=== PATIENT | male | born 2000 | race Caucasian/White ===

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

== ENCOUNTER 2020-08-07 11:38 | Emergency (ER) | payer OTHER, SELFPAY ==
[2020-08-07 11:55] VITALS: BP 138/73; PULSE 93; RESP 16; TEMP 36.3; O2SAT 100
--- NOTE | 2020-08-07 12:12 | ED.EYEPROB ---
HPI - Eye Problem General Chief complaint: Eye Problems Stated complaint: right eye Time Seen by Provider: 08/07/20 12:07 Source: patient and RN notes reviewed Mode of arrival: ambulatory Limitations: no limitations History of Present Illness HPI Narrative: 19-year-old male presents concern for possible foreign body in the right eye. Reports today some debris from a wood pallet got in his face, he felt like he got something in his eye. Reports he washed his eye immediately. Denies pain, reports irritation and watery drainage. Denies vision changes. Denies any skin laceration, abrasion. chief complaint: eye pain Related Data Allergies Allergy/AdvReac Type Severity Reaction Status Date / Time No Known Allergies Allergy Verified 08/07/20 11:54 Review of Systems Review of Systems: Narrative: CONSTITUTIONAL: Denies malaise, chills, sweats, or fever. EYES: Denies visual changes. Reports right eye redness, irritation, watery discharge. ENT: Denies rhinorrhea, congestion, sinus pain, otalgia or sore throat. SKIN: Denies rash or itching. Denies abrasion, laceration All systems reviewed & are unremarkable except as noted in HPI and below PMFSH Social History Social History Gender identity (if verbalized by the patient): Male Comments At time of signature, agree with nursing past medical, surgical, social and family history. There is no relevant family history pertinent to the presenting complaint Exam Narrative: Exam Narrative: GENERAL: Well-appearing, well-nourished, and in no acute distress. HEAD: Normocephalic, atraumatic. EYES: PERRLA and EOMI. No nystagmus. Right eye sclera slightly injected, no foreign body noted. Corneal abrasion noted on Ybarra lamp exam, see note ENT: Mucous membranes moist. NECK: Supple. CHEST: No respiratory distress. speaks in full sentences. HEART: Regular rate and rhythm. SKIN: Warm, dry, no rash. NEURO: Alert and oriented x3. PSYCH: Normal mood and affect Course Course Emergency Course: Patient is aware of diagnosis, understands and agrees to treatment plan. Anticipatory guidance given. Patient agrees to follow-up as directed and is aware of reasons to seek care at the emergency department. Portions of this record may have been created with voice recognition software Vital Signs Vital signs: Vital Signs Temperature 97.3 F L 08/07/20 11:55 Pulse Rate 93 08/07/20 11:55 Respiratory Rate 16 08/07/20 11:55 Blood Pressure 138/73 08/07/20 11:55 Pulse Oximetry 100 08/07/20 11:55 Temperature 97.3 F L 08/07/20 11:55 Pulse Rate 93 08/07/20 11:55 Respiratory Rate 16 08/07/20 11:55 Blood Pressure 138/73 08/07/20 11:55 Pulse Oximetry 100 08/07/20 11:55 Reviewed. MDM - Eye Problem MDM Narrative Medical decision making narrative: Consideration of the following conditions may be warranted for the presenting problem, they are not final diagnoses: Bacterial conjunctivitis, allergic conjunctivitis, viral conjunctivitis, foreign body, blepharitis, chalazion, hordeolum, corneal abrasion. Exam findings show no acute concerns or changes; patient is non-toxic appearing and is in no distress. Patient is appropriate for outpatient treatment and follow-up. Critical Care Time Critical Care Time Critical Care Time: No Discharge Plan Discharge Clinical Impression: Corneal abrasion Qualifiers: Encounter type: initial encounter Laterality: right Qualified Code(s): S05.01XA - Injury of conjunctiva and corneal abrasion without foreign body, right eye, initial encounter Patient Disposition: Home, Self-Care Condition: Stable Instructions: Corneal Abrasion (ED) Additional Instructions: Corneal abrasions will heal in 1-2 days. Keep your eye shut and wearing sunglasses or staying in low light to avoid light sensitivity. Do not touch or rub your eye or use a fabric patch ( pirate's patch ) You may take Tylenol or ibuprofen for pain Follow-up with PCP or
== END 2020-08-07 12:27 | disposition home or self-care (01) ==
PROVIDERS: Emergency Provider Nurse Practitioner
DX: S05.01XA Injury of conjunctiva and corneal abrasion without foreign body, right eye, initial encounter (principal); X58.XXXA Exposure to other specified factors, initial encounter
CPT/HCPCS: 99213; A9270; G0463

== ENCOUNTER 2021-11-12 12:13 | Emergency (ER) | payer OTHER, SELFPAY ==
--- NOTE | ~2021-11-12 | CT_ITS ---
EXAMINATION: CT brain wo con, CT cervical spine wo con EXAM DATE: 11/12/2021 12:47 INDICATION: Head injury. TECHNIQUE: Spiral CT of the head was performed without contrast. Axial, coronal and sagittal images were reviewed. Spiral CT of the cervical spine was performed without contrast. Axial images were rev iewed. Coronal and sagittal reformatted images were also reviewed. The dose-length product (DLP) fo r this examination was 605.33 (accession [id number]), 475.37 (accession [id number]) mGy-cm. The exposure was tailored according to patient size, and iterative reconstruction (ASIR) was used as additional dose reduction technique. Comparison is made to prior examination from 09/09/2017. FINDINGS: HEAD CT: There is no acute intraparenchymal hemorrhage. No evidence of intraparenchymal brain mass l esion. No evidence of acute infarction. There is no mass effect or midline shift. There is no obstru ctive hydrocephalus suspected. There are no extra-axial collections. There are no acute calvarial f ractures. The orbits are unremarkable. Soft tissue is unremarkable. The visualized sinuses and mas toid air cells are well aerated. CERVICAL CT: There is no evidence of acute cervical fracture. The odontoid process is intact. Pre- dens space is normal. Prevertebral soft tissue is normal. There are no soft tissue abnormalities id entified. There is no disc space widening or traumatic vertebral body subluxation suspected. Verteb ral body and disc heights are well-maintained. A detailed level by level evaluation of spondylosis can be added as addendum if requested. IMPRESSION: 1. No acute intracranial findings or cervical fracture. Reviewed, dictated and finalized at location B. IMPRESSION: 1. No acute intracranial findings or cervical fracture.
[2021-11-12 12:20] VITALS: BP 133/74; PULSE 94; RESP 16; TEMP 36.3; O2SAT 99
--- NOTE | 2021-11-12 12:33 | ED.HEATRA ---
HPI - Head Injury General Chief complaint: Head Injury Stated complaint: head injury Time Seen by Provider: 11/12/21 12:22 History of Present Illness HPI Narrative: 21-year-old male presents emergency room for evaluation of a head injury that he sustained while at work this morning. 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 Patient states that he was nauseated following the event. Denies loss of consciousness or altered mental status. Denies vision and hearing changes. Currently patient is alert and oriented x3. Patient denies being on blood thinners Related Data Allergies Allergy/AdvReac Type Severity Reaction Status Date / Time No Known Allergies Allergy Verified 11/12/21 12:23 Review of Systems Review of Systems: CONSTITUTIONAL: Denies fever, chills, or sweats. EYES: Denies visual changes, redness, or discharge. ENT: Denies rhinorrhea, congestion, sore throat, or otalgia. CARDIOVASCULAR: Denies chest pain, palpitations, or edema. RESPIRATORY: Denies cough or dyspnea. GASTROINTESTINAL: Reports nausea GENITOURINARY: Denies dysuria or hematuria. SKIN: Denies rash or itching. MUSCULOSKELETAL: Denies back pain, joint pain, or myalgia. NEUROLOGIC: Reports headache PSYCHIATRIC: Denies anxiety or depression. [facility] [place] Social History Social History Gender identity (if verbalized by the patient): Male Course Vital Signs Vital signs: Vital Signs Temperature 36.3 C L 11/12/21 12:20 Pulse Rate 94 11/12/21 12:20 Respiratory Rate 16 11/12/21 12:20 Blood Pressure 133/74 11/12/21 12:20 Pulse Oximetry 99 11/12/21 12:20 Temperature 36.3 C L 11/12/21 12:20 Pulse Rate 94 11/12/21 12:20 Respiratory Rate 16 11/12/21 12:20 Blood Pressure 133/74 11/12/21 12:20 Pulse Oximetry 99 11/12/21 12:20 MDM - Head Injury Differential Diagnosis Differential diagnosis: Likely concussion without loss of consciousness and closed head injury Medical Records Attestation: I reviewed the patient's medical records. Imaging Data Radiologist's impression: Impressions Cervical Spine CT 11/12/21 12:47 IMPRESSION: 1. No acute intracranial findings or cervical fracture. Head CT 11/12/21 12:47 IMPRESSION: 1. No acute intracranial findings or cervical fracture. Discharge Plan Discharge Clinical Impression: Nausea Closed head injury Qualifiers: Encounter type: initial encounter Qualified Code(s): S09.90XA - Unspecified injury of head, initial encounter Patient Disposition: Home, Self-Care Condition: Stable Instructions: Antibiotic Form Prescriptions: New ondansetron 4 mg tablet,disintegrating 4 mg PO Q8H Qty: 14 RF: 0 No Action polymyxin B sulf-trimethoprim [Polytrim] 10,000 unit- 1 mg/mL drops 1 drp EACH EYE Q4H 7 Days Qty: 10 RF: 0 Follow-up/Referrals: PHYSICIAN,MANAGER TRADE [Primary Care Provider] - Stand Alone Forms: Work/School Release IP Time of Disposition: 12:57
[2021-11-12] MEDS: ONDANSETRON HCL ODT 4 MG TABLET PO (12:39)
--- NOTE | 2021-11-12 12:43 | PC.NURSE ---
Pt to CT.
== END 2021-11-12 13:29 | disposition home or self-care (01) ==
PROVIDERS: Emergency Provider Nurse Practitioner Family
DX: S09.90XA Unspecified injury of head, initial encounter (principal); R11.0 Nausea; W22.8XXA Striking against or struck by other objects, initial encounter
CPT/HCPCS: 70450; 72125; 99284; A9270

== ENCOUNTER 2021-12-01 17:38 | Emergency (ER) | payer OTHER, SELFPAY ==
[2021-12-01 17:40] VITALS: BP 128/74; PULSE 103; RESP 18; TEMP 36.3; O2SAT 98
--- NOTE | 2021-12-01 17:58 | PC.NURSE ---
Dr. Orellana at bedside for pt assessment.
--- NOTE | 2021-12-01 18:04 | ED.WOUNDLAC ---
HPI - Wound/Laceration General Chief Complaint: Wound/Laceration Stated Complaint: laceration Time Seen by Provider: 12/01/21 17:52 Source: patient History of Present Illness HPI narrative: Patient presents with a finger laceration he reports he was cooking dinner at work he was cutting lettuce when it slipped and struck his finger. Reports the corner of his finger slipped off he put it back in place and wrapped a Band-Aid around it came to the ER for evaluation. Is unsure when his last tetanus shot was injuries on his left index finger he is right-hand dominant. Related Data Allergies Allergy/AdvReac Type Severity Reaction Status Date / Time No Known Allergies Allergy Verified 11/12/21 12:23 Review of Systems Review of Systems: CONSTITUTIONAL: Denies fever, chills, or sweats. EYES: Denies visual changes, redness, or discharge. ENT: Denies rhinorrhea, congestion, sore throat, or otalgia. CARDIOVASCULAR: Denies chest pain, palpitations, or edema. RESPIRATORY: Denies cough or dyspnea. GASTROINTESTINAL: Denies abdominal pain, nausea, vomiting, or diarrhea. SKIN: Denies rash or itching. MUSCULOSKELETAL: Denies back pain, joint pain, or myalgia. NEUROLOGIC: Denies headache, numbness, dizziness, or weakness. [facility] Social History Social History Gender identity (if verbalized by the patient): Male Exam Narrative: GENERAL: Well-appearing, well-nourished, and in no acute distress. HEAD: Normocephalic, atraumatic. EYES: PERRLA and EOMI. ENT: Nares clear, no rhinorrhea or epistaxis. Mucous membranes moist. NECK: Supple. No masses. No JVD EXTREMITIES: Normal range of motion. No edema. SKIN: Warm, dry, no rash. Small laceration less than half a centimeter on the radial distal aspect of the left second digit there is minor damage to the nail unable to separate the skin and identify any partial amputation. There is no active bleeding range of motion across the entire digit is intact sensation intact to light touch distally with less than 2-second cap refill NEURO: No focal deficits. Alert and oriented x3. PSYCH: Normal mood and affect. Course Vital Signs Vital signs: Vital Signs Temperature 36.3 C L 12/01/21 17:40 Pulse Rate 103 H 12/01/21 17:40 Respiratory Rate 18 12/01/21 17:40 Blood Pressure 128/74 12/01/21 17:40 Pulse Oximetry 98 12/01/21 17:40 Temperature 36.3 C L 12/01/21 17:40 Pulse Rate 103 H 12/01/21 17:40 Respiratory Rate 18 12/01/21 17:40 Blood Pressure 128/74 12/01/21 17:40 Pulse Oximetry 98 12/01/21 17:40 Procedures Laceration Laceration 1: Date: 12/01/21 Time: 18:11 Site: hand Side (If applicable): left Size (cm): 0.5 Description: linear Depth: simple, single layer Pre-repair: irrigated ====== Skin Level ====== Skin layer closed with: dermabond ====== Subcutaneous Layer ====== ====== Muscle Layer ====== ====== Tendon Layer ====== MDM - Wound/Laceration MDM Narrative Medical decision making narrative: H&P as above, vss, pt looks clinically well, exam laceration to the second digit left hand, labs/img considered, symptomatic relief available as needed, patient was treated with irrigation and skin glue on reevaluation pt continues to looks clinically well. Suspect superficial injury, dns major neurovascular compromise tendon injury significant blood loss. plan to tx/monitor as op w/ pcm f/u findings/plan discussed with pt, pt agree/comfortable with plan, return precautions given Discharge Plan Discharge Clinical Impression: Laceration Patient Disposition: Home, Self-Care Condition: Improved Instructions: Antibiotic Form, Laceration (ED), Skin Adhesive Care (ED) Additional Instructions: Please return if your symptoms worsen or fail to improve. If you develop a fever, can not eat/drink anything or if you have any other conc
[2021-12-01] MEDS: TETANUS,DIPHTHERIA,AC PERTUSSIS ADULT (0.5 ML) BOOSTRIX IM (18:26)
== END 2021-12-01 18:32 | disposition home or self-care (01) ==
PROVIDERS: Emergency Provider Emergency Medicine
DX: S61.211A Laceration without foreign body of left index finger without damage to nail, initial encounter (principal); W26.0XXA Contact with knife, initial encounter; Y93.G1 Activity, food preparation and clean up; Z23 Encounter for immunization
CPT/HCPCS: 12001; 90471; 90715; 99282

== ENCOUNTER 2023-05-19 10:18 | Emergency (ER) | payer OTHER, SELFPAY ==
--- NOTE | 2023-05-19 10:22 | ED.URI ---
HPI - URI/Sore Throat General Chief Complaint: Upper Respiratory Infection Stated Complaint: Sore Throat Time Seen by Provider: 05/19/23 10:22 Source: patient Mode of arrival: ambulatory Limitations: no limitations History of Present Illness HPI Narrative: Patient is a 42 male who presents with sore throat started last night. Also reports congestion and drainage. Denies any fever, chills, ear pain, headache, cough, nausea, vomiting, diarrhea. Did take ibuprofen with no relief of symptoms. Related Data Home Medications Medication Instructions Recorded Confirmed No Home Medications 05/19/23 05/19/23 Allergies Allergy/AdvReac Type Severity Reaction Status Date / Time No Known Allergies Allergy Verified 05/19/23 10:28 Review of Systems Review of Systems: All systems reviewed & are unremarkable except as noted in HPI and below Constitutional: Constitutional: Denies body ache(s), Denies chills, Denies fatigue, Denies fever(s), Denies headache(s), Denies malaise and Denies weakness Eyes: Eyes: Denies blurry vision, Denies itchy eyes and Denies loss of vision ENT: Denies otalgia, Denies headache(s), Reports nasal congestion, Denies sinus pain and Reports sore throat Cardiovascular: Cardiovascular: Denies chest pain, Denies irregular heart rhythm and Denies dyspnea Respiratory: Respiratory: Denies cough and Denies dyspnea Gastrointestinal: Gastrointestinal: Denies abdominal pain, Denies diarrhea, Denies nausea and Denies vomiting Musculoskeletal: Musculoskeletal: Denies back pain, Denies myalgias and Denies arthralgias Integumentary/Breasts: Skin/Breast: Denies pruritus and Denies rash Neurologic: Denies headache(s), Denies loss of vision and Denies weakness Psychiatric: Psychiatric: Reports no additional psychiatric complaints Endocrine: Endocrine: Denies fatigue Allergic/Immunologic: Allergic/Immunologic: Denies itchy eyes PMFSH Social History Social History Gender identity (if verbalized by the patient): Male Comments At time of signature, agree with nursing past medical, surgical, social and family history. There is no relevant family history pertinent to the presenting complaint. Exam Const: General: cooperative, healthy appearing, comfortable, no acute distress and well nourished Nutritional Appearance: well nourished Orientation/consciousness: patient oriented x3 Limitations: no limitations HENMT: Head: normal to inspection, normocephalic and atraumatic Ears: hearing grossly normal bilaterally, external ears normal, TM's normal bilaterally, EAC's normal and no periauricular adenopathy Face/Nose/Sinus: Normal external nose present, Abnormal mucous membranes and turbinates present erythematous bilateral and diffuse, normal facial exam, sinuses nontender and face symmetric Face and sinus: normal facial exam, sinuses nontender and face symmetric Mouth: Yes Normal oral and palatal mucosa present, Yes lip normal, Yes tongue normal, Yes Normal salivary glands and ducts present, Yes oropharynx normal and Yes moist mucous membranes Teeth and gingiva: dentition normal Throat: uvula midline, abnormal tonsil bilateral erythema and exudates, posterior oropharynx abnormal erythema and postnasal drainage Eyes: General: appearance normal, both eyes and all related structures Alignment and Position: alignment normal and position normal Periorbital: periorbital findings normal Eyelids: eyelids normal Pupils: Equal, round and reactive pupils present Neck: Neck: normal visual inspection, full ROM, no lymphadenopathy and supple Chest: Chest palpation & inspection: normal inspection of the chest and normal palpation of entire chest wall Resp: Effort & Inspection: normal respiratory effort and able to speak in complete sentences Auscultation: clear to auscultation bilaterally, no crackles, no rales, no rhonchi and no wheezes Cardio: Rate: regular rate Rhythm
[2023-05-19 10:28] VITALS: BP 112/67; PULSE 77; RESP 18; TEMP 36.1; O2SAT 100
== END 2023-05-19 10:51 | disposition home or self-care (01) ==
PROVIDERS: Emergency Provider Nurse Practitioner Family
DX: J06.9 Acute upper respiratory infection, unspecified (principal)
CPT/HCPCS: 87081; 87880; 99213; G0463